=== PATIENT | male | born 1990 | race Caucasian/White ===

== ENCOUNTER 2023-05-22 08:23 | Emergency (ER) | payer MEDICAID ==
[~2023-05-22] VITALS: Ht 149.9 cm; Wt 65.9 kg
[~2023-05-22 08:23] MED LIST: CALCIUM CARBON500 M1 PO; CARBATROL300 MG PO; CEPHALEXIN500 M1 PO; COLACE LIQUI10 MG/ML PEG; DEPAKENE 250 MG/1 ML PO; DEPAKOTE500 M1 PO; DSS100 MG PO; FIBER CHOICE1 CTB PO; FLONASE NASAL S16 GM NS; ISOSOURCE PEG; MIACALCIN NASA3.7 ML NS; OMNICEF250 MG/5 M PO; PEPCID COMPLETE1 CTB PO; PRILOSEC 20MG20 MG PO; REGLAN 10M10 MG/2 ML; REGLAN 10MG/11 MG/ML PEG; REGLAN 5MG5 MG PO; SILACE150 MG/15 PO; SIMETHICONE 1 ML1 ML PEG; TEGRETOL SUS20 MG/ML PO; ULTRAM50 MG PEG; UNABLE; VERAMYST27.5 MCG/A NS; VITAMIN D3500 UNIT/5 PO; VITAMIN D50000 IU PEG; ZEGERID1 PK1 PO; ZYRTEC 10MG10 MG PO; ZYRTEC SYRUP1 MG/ML PO
[2023-05-22 08:37] VITALS: TEMP 97.1
[2023-05-22 09:42] LABS: BASO % 0.5 % (0.0-2.0); GRAN # 4.1 K/mm3 (1.4-6.5); GRAN % 74.8 % (42.2-75.2); HEMATOCRIT 37.7 % (42.0-52.0); HEMOGLOBIN 13.3 g/dl (13.5-18.0); LYMPH # 0.7 K/mm3 (1.2-3.4); LYMPH % 12.8 % (20.0-51.0); MEAN CELL VOLUME 94 fl (80.0-100.0); MEAN CORPUSCULAR HEMOGLOBIN 33 pg (27-31); MEAN CORPUSCULAR HGB CONC 35 g/dl (33.0-37.0); MEAN PLATELET VOLUME 10.9 fl (7.4-10.4); MONO # 0.6 K/mm3 (0.1-0.6); MONO % 11.7 % (1.7-9.3); PLATELET COUNT 205 K/mm3 (130-400); RED BLOOD COUNT 4.01 M/mm3 (4.20-5.60)
[2023-05-22 10:01] LABS: ALBUMIN 3.1 gm/dL (3.5-5.0); BILIRUBIN,TOTAL 0.7 mg/dL (0.2-1.2); CALCIUM 8.6 mg/dL (8.4-10.2); CREATININE, serum 0.43 mg/dL (0.72-1.25); POTASSIUM 4.5 mmol/L (3.5-4.5); TOTAL PROTEIN 7.3 gm/dL (6.2-8.1)
[2023-05-22 12:09] VITALS: BP 171/103; PULSE 88
== END 2023-05-22 12:09 | disposition home or self-care (01) ==
LOC: COL.ER 08:23
PROVIDERS: Emergency Medicine
DX: E87.1 Hypo-osmolality and hyponatremia (principal); R19.7 Diarrhea, unspecified
CPT/HCPCS: J2405; J7120

== ENCOUNTER 2024-02-14 07:42 | Emergency (ER) | payer MEDICAID ==
[2024-02-14 08:03] VITALS: BP 181/151; TEMP 97.6
[2024-02-14 09:56] VITALS: PULSE 86
== END 2024-02-14 09:56 | disposition home or self-care (01) ==
LOC: COL.ER 07:42
DX: S00.432A Contusion of left ear, initial encounter (principal)

== ENCOUNTER 2024-02-16 09:39 | Emergency (ER) | payer MEDICAID ==
[~2024-02-16] VITALS: Wt 64.5 kg
[2024-02-16 09:50] VITALS: TEMP 98.5
[2024-02-16] MEDS ORDERED: CEPHALEXIN500 M1 PO (12:13)
[2024-02-16 12:20] VITALS: BP 181/103; PULSE 86
[2024-02-16] MEDS ORDERED: CEPHALEXIN250 MG/5 M PO (12:42)
== END 2024-02-16 12:27 | disposition home or self-care (01) ==
LOC: COL.ER 09:39
DX: L72.8 Other follicular cysts of the skin and subcutaneous tissue (principal)